=== PATIENT | male | born 2000 | race African-American/Black ===

== ENCOUNTER 2023-02-24 08:12 | Emergency (ER) | payer OTHER ==
[2023-02-24] MEDS ORDERED: cefTRIAXone (ROCEPHIN) 500 MG VIAL ONE (08:56)
[2023-02-24] MEDS ORDERED: Lidocaine 2% PF 5 ML VIAL ONE (08:56)
[2023-02-24] MEDS ORDERED: Doxycycline 100 MG CAP PO SCH (09:00)
== END 2023-02-24 09:25 | disposition home or self-care (01) ==
LOC: CSHERS 08:12
DX: Z20.2 Contact with and (suspected) exposure to infections with a predominantly sexual mode of transmission (principal)
CPT/HCPCS: 96372; 99283; J0696; J2001

== ENCOUNTER 2024-12-02 19:57 | Emergency (ER) | payer OTHER, SELFPAY ==
[2024-12-02] MEDS ORDERED: Ibuprofen 200 MG TAB ONE (20:08)
== END 2024-12-02 21:55 | disposition home or self-care (01) ==
LOC: CSHERS 19:57
DX: J02.9 Acute pharyngitis, unspecified (principal)
CPT/HCPCS: 87081; 87428; 87430; 99284